=== PATIENT | male | born 1960 | race Two or more races ===

== ENCOUNTER 2017-05-12 13:46 | Emergency (ER) | payer OTHER ==
[2017-05-12 13:50] VITALS: BP 130/75; PULSE 90; TEMP 100.3; BMI 31.3
[2017-05-12] MEDS ORDERED: IBUPROFEN 600 MG TABLET (FP) PO ONE ×2 (15:50→15:51)
--- NOTE | 2017-05-12 15:55 | PDOC ---
History of Present Illness - General Chief Complaint: Cold Symptoms Stated Complaint: FEVER, COUGH Time Seen by Provider: 05/12/17 15:47 History Source: Patient Exam Limitations: No Limitations - History of Present Illness Initial Comments: 05/12/17 15:54 Came in with complaints of cough, fever, chills, runny nose, moist nonproductive cough and attempts greater than 101.5. States is been sick for approximately 2 days. Timing/Duration: reports: just prior to arrival, changing over time, getting worse Severity: reports: moderate Associated Symptoms: reports: chest pain/soreness, cough, dizziness, fever/ chills, nasal congestion Past History - Travel Traveled outside of the country in the last 30 days: No Close contact w/someone who was outside of country & ill: No - Past Medical History Allergies/Adverse Reactions: Allergies Allergy/AdvReac Type Severity Reaction Status Date / Time No Known Drug Allergies Allergy Verified 05/12/17 13:48 Home Medications: Ambulatory Orders Aspirin [ASA -] 81 mg PO DAILY 01/19/14 Atorvastatin Ca [Lipitor] 20 mg PO HS 12/26/15 Amlodipine Besylate [Norvasc -] 5 mg PO DAILY #30 tablet 12/28/15 Metoprolol Succinate [Toprol XL -] 25 mg PO DAILY #30 tab.sr.24h 12/28/15 Ibuprofen [Motrin -] 400 mg PO QID PRN #28 tablet 05/12/17 Oseltamivir Phosphate [Tamiflu -] 75 mg PO BID #10 capsule 05/12/17 Anemia: No Asthma: No Cancer: No Cardiac Disorders: No CVA: No COPD: No CHF: No Dementia: No Diabetes: No GI Disorders: No Disorders: No HTN: Yes Hypercholesterolemia: No Liver Disease: No Seizures: No Thyroid Disease: No - Surgical History Abdominal Surgery: No Appendectomy: No Cardiac Surgery: No Cholecystectomy: No Lung Surgery: No Neurologic Surgery: No Orthopedic Surgery: Yes (L KNEE ARTHROSCOPY) - Immunization History Immunization Up to Date: Yes - Suicide/Smoking/Psychosocial Hx Smoking Status: No Smoking History: Never smoked Have you smoked in the past 12 months: No Number of Cigarettes Smoked Daily: 0 Hx Alcohol Use: Yes Drug/Substance Use Hx: No Substance Use Type: Alcohol Hx Substance Use Treatment: Yes Review of Systems - Review of Systems Able to Perform ROS?: Yes Is the patient limited Faroese proficient: Yes Constitutional: Yes: Symptoms Reported, See HPI, Fever, Malaise HEENTM: Yes: Symptoms Reported, See HPI, Nose Congestion, Throat Pain Respiratory: Yes: Symptoms reported, See HPI, Cough ABD/GI: Yes: See HPI. No: Symptoms Reported Integumentary: Yes: Symptoms Reported, See HPI All Other Systems: Reviewed and Negative *Physical Exam - Vital Signs Last Vital Signs Temp Pulse Resp BP Pulse Ox 100.3 F H 90 18 130/75 99 05/12/17 13:47 05/12/17 13:47 05/12/17 13:47 05/12/17 13:47 05/12/17 13:47 - Physical Exam General Appearance: Yes: Nourished, Appropriately Dressed, Apparent Distress, Moderate Distress HEENT: positive: TMs Normal (congested), Tonsillar Erythema, Nasal Congestion, Rhinorrhea Neck: positive: Supple, Lymphadenopathy (R), Lymphadenopathy (L) Respiratory/Chest: positive: Lungs Clear (course but clear), Normal Breath Sounds Gastrointestinal/Abdominal: positive: Normal Bowel Sounds, Soft. negative: Tender Extremity: positive: Normal Capillary Refill, Normal Inspection Integumentary: positive: Dry, Warm, Pale Neurologic: positive: package wrapper II-XII NML intact, Fully Oriented, Alert, Normal Mood/ Affect, Normal Response, Motor Strength 5/5 Progress Note - Progress Note Progress Note: Influenzal type upper respiratory infection, we'll treat with Tamiflu *DC/Admit/Observation/Transfer Diagnosis at time of Disposition: Influenzal acute upper respiratory infection - Discharge Dispostion Disposition: HOME Condition at time of disposition: Stable Admit: No - Referrals Referrals: Darin Butler MD, [Primary Care Provider] - - Patient Instructions Printed Discharge Instructions: DI for Influenza -- Adult Additional Instructions: Rest, drink lots of fluids: Teas, water, soups, Pedialyte Saltwater gargles Steamy showers/seem to face break up mucus Old-fashioned treatments help! Avoid contact with others until fevers and cough resolved as this is very contagious Lots of handwashing and good hygiene Continue [id number] medications for symptomatic relief Tylenol or Motrin for fever and pain Take all of Tamiflu as directed: 1 tab every 12 hours for 5 days Followup with private physician in one to 2 days as needed or if worsening Return to emergency department for worsened symptoms, fevers, dehydration Influenza takes between 5 and 7 days for resolution To not participate in any activity, work, or school until fevers and cough are gone for at least one day - Post Discharge Activity Forms/Work/School Notes: Back to Work
== END 2017-05-12 15:58 | disposition home or self-care (01) ==
LOC: JERFT 13:46 → SUPCPDRO 13:46 → JERFT 15:58
DX: J11.1 Influenza due to unidentified influenza virus with other respiratory manifestations (principal)
CPT/HCPCS: 99281-25

== ENCOUNTER 2017-05-24 06:50 | Day surgery (SDC) | payer OTHER ==
[2017-05-22 08:38] VITALS: BMI 28.2
[2017-05-24] MEDS ORDERED: oxyCODONE HCL 5 MG TABLET PO PRN (09:03)
[2017-05-24] MEDS ORDERED: ONDANSETRON 4 MG/2 ML VIAL IVPUSH PRN (09:03)
[2017-05-24] MEDS ORDERED: LACTATED RINGERS SOLUTION 1,000 ML IV SCH (09:15)
[2017-05-24] MEDS ORDERED: EPINEPHrine 1:1,000 1 MG/1 ML - 30ML VIAL (INJECTION) SQ ONE (09:30)
[2017-05-24] MEDS ORDERED: BUPIVACAINE HCL/PF 0.25% (2.5MG/ML) 10 ML VIAL IJ ONE (09:30)
[2017-05-24] MEDS ORDERED: ONDANSETRON 4 MG/2 ML VIAL ONE (10:06)
--- NOTE | 2017-05-24 10:36 | OP ---
DATE OF OPERATION: 05/24/2017 PREOPERATIVE DIAGNOSIS: Right knee medial meniscal tear. POSTOPERATIVE DIAGNOSIS: Right knee medial meniscal tear. PROCEDURE: Right knee arthroscopy, partial medial meniscectomy. SURGEON: Malvin Pace MD ANESTHESIA: General. POSTOPERATIVE CONDITION: Stable. COMPLICATIONS: None. INDICATIONS: This is a pleasant gentleman suffering from right knee pain. MRI demonstrated medial meniscal tear. Treatment options including nonoperative versus operative management were discussed. Operative risks were reviewed in detail including bleeding, infection, neurovascular injury, need for further surgery, postoperative pain and stiffness, further progression of osteoarthritis. We discussed medical risks such as heart attack, stroke, DVT, PE, and . We discussed the use of perioperative antibiotic and DVT prophylaxis. I addressed all the patient's questions and concerns. He voiced understanding and elected to proceed. DESCRIPTION OF PROCEDURE: The patient was brought to the operating room where general anesthesia was administered. The right lower extremity was then prepped and draped in usual sterile fashion. A preoperative dose of antibiotics was given, and the usual timeout procedure was performed. At this point, the portal sites were marked out and then injected subcutaneously with 0.25% Marcaine. The 11 blade was now used to create the lateral portal. The arthroscope was passed into the knee. Examination of the patellofemoral joint demonstrated some high-grade partial fraying of the patellar surface and high-grade partial fissuring of the femoral surface. The arthroscope was now passed down to the notch. Here, the ACL and PCL were visualized to be intact. Passing the arthroscope into the medial compartment, a medial portal was established under spinal needle localization. There was high-grade, partial-thickness chondral loss over the medial femoral condyle, more so lateral aspect. Visualized was a complex tear of the posterior horn extending into the body of the medial meniscus. Utilizing a combination of meniscal biters and a shaver, this was debrided down to a stable base, retaining the upper flap as this appeared to be healthier tissue than the lower flap. The arthroscope was now passed into the lateral compartment. Here, some very mild superficial fraying was noted over the articular surfaces. The meniscus was slightly yellowed in appearance but without tear. The meniscus was probed and found to be stable and without tears. The excess fluid was now withdrawn from the joint. The portals were sutured using 2-0 nylon. Sterile dressings were placed. Patient was extubated and transferred to recovery room in stable condition. Ricardo [id number]
[2017-05-24] MEDS ORDERED: oxyCODONE HCL 5 MG TABLET ONE (11:19)
[2017-05-24 11:35] VITALS: TEMP 98.4
[2017-05-24 12:41] VITALS: BP 120/80; PULSE 66
== END 2017-05-24 12:40 | disposition home or self-care (01) ==
LOC: FASU 06:50
PROVIDERS: ATTEND Orthopaedic Surgery Sports Medicine
PROC: 0SBC4ZZ Excision of Right Knee Joint, Percutaneous Endoscopic Approach (ICD-10-PCS; principal; 2017-05-24 09:10)
DX: S83.241A Other tear of medial meniscus, current injury, right knee, initial encounter (principal); X58.XXXA Exposure to other specified factors, initial encounter; Y93.89 Activity, other specified; Y92.89 Other specified places as the place of occurrence of the external cause
CPT/HCPCS: 94760

== ENCOUNTER 2018-09-03 19:47 | Emergency (ER) | payer OTHER | END 2018-09-04 00:18 | disposition home or self-care (01) | LOC: JER 09-04 00:18 | DX: M10.9 Gout, unspecified (principal); I10 Essential (primary) hypertension; E78.00 Pure hypercholesterolemia, unspecified ==

== ENCOUNTER 2019-03-11 16:41 | Emergency (ER) | payer SELFPAY ==
[2019-03-11 16:49] VITALS: BP 161/93; PULSE 67; TEMP 98.4; BMI 31.8
--- NOTE | 2019-03-11 16:49 | PDOC ---
Rapid Medical Evaluation Chief Complaint: Hemorrhoids Time Seen by Provider: 03/11/19 16:43 Medical Evaluation: Allergies Allergy/AdvReac Type Severity Reaction Status Date / Time No Known Drug Allergies Allergy Verified 09/03/18 19:50 03/11/19 16:45 I have performed a brief in-person evaluation of this patient. The patient presents with a chief complaint of: h/o hemorrhoids presenting with complains of rectal bleed from hemorrhoids . Saw PCP today who referred him to surgery for f/u but could not get appt until next week and was advised to come to ED if rectal bleed. report had small amount of blood in stool today Pertinent physical exam findings: A&O x 3 in NAD I have ordered the following: nothing The patient will proceed to the ED for further evaluation. Discharge Disposition - Diagnosis Hemorrhoids Qualifiers: Hemorrhoid type: unspecified Qualified Code(s): K64.9 - Unspecified hemorrhoids - Discharge Dispostion Condition at time of disposition: Stable - Referrals - Patient Instructions - Post Discharge Activity
--- NOTE | 2019-03-11 18:10 | PDOC ---
History of Present Illness - General Chief Complaint: Hemorrhoids Stated Complaint: GI BLEEDING Time Seen by Provider: 03/11/19 16:43 - History of Present Illness Initial Comments: 03/11/19 18:09 58-year-old male without comorbidities presents for evaluation of bright red blood per rectum today. He states he has a large hemorrhoid he cannot see his GI doctor until Sunday and today he started rectal bleeding Past History - Past Medical History Allergies/Adverse Reactions: Allergies Allergy/AdvReac Type Severity Reaction Status Date / Time No Known Drug Allergies Allergy Verified 03/11/19 16:49 Home Medications: Ambulatory Orders Aspirin [ASA -] 81 mg PO DAILY 01/19/14 Atorvastatin Ca [Lipitor] 20 mg PO HS 12/26/15 Amlodipine Besylate [Norvasc -] 5 mg PO DAILY #30 tablet 12/28/15 Metoprolol Succinate [Toprol XL -] 25 mg PO DAILY #30 tab.sr.24h 12/28/15 Ibuprofen [Motrin -] 400 mg PO QID PRN #28 tablet 05/12/17 Indomethacin [Indocin -] 50 mg PO TID 3 Days #9 capsule 09/04/18 Anemia: No Asthma: No Cancer: No Cardiac Disorders: No CVA: No COPD: No CHF: No Dementia: No Diabetes: No GI Disorders: No Disorders: No HTN: Yes Hypercholesterolemia: Yes Liver Disease: No Seizures: No Thyroid Disease: No - Surgical History Abdominal Surgery: No Appendectomy: No Cardiac Surgery: No Cholecystectomy: No Lung Surgery: No Neurologic Surgery: No Orthopedic Surgery: Yes (L KNEE ARTHROSCOPY) - Immunization History Immunization Up to Date: Yes - Psycho Social/Smoking Cessation Hx Smoking Status: No Smoking History: Never smoked Have you smoked in the past 12 months: No Number of Cigarettes Smoked Daily: 0 Information on smoking cessation initiated: No Hx Alcohol Use: No Drug/Substance Use Hx: No Substance Use Type: Alcohol Hx Substance Use Treatment: Yes Review of Systems - Review of Systems ABD/GI: Yes: Rectal Bleeding *Physical Exam - Vital Signs Last Vital Signs Temp Pulse Resp BP Pulse Ox 98.4 F 67 17 161/93 100 03/11/19 16:43 03/11/19 16:43 03/11/19 16:43 03/11/19 16:43 03/11/19 16:43 - Physical Exam 03/11/19 18:10 Is a large thrombosed hemorrhoid at the 5 o'clock position and a smaller thrombosed hemorrhoid at the 9 o'clock position. Medical Decision Making - Medical Decision Making 03/11/19 18:10 I will transfer this patient to the main emergency room for further work-up Discharge - Discharge Information Problems reviewed: Yes Clinical Impression/Diagnosis: GI bleed Hemorrhoids Qualifiers: Hemorrhoid type: unspecified Qualified Code(s): K64.9 - Unspecified hemorrhoids Condition: Stable - Follow up/Referral Referrals: Darin Butler MD, MD [Primary Care Provider] - - Patient Discharge Instructions - Post Discharge Activity
[2019-03-11 18:49] LABS: EOS % 1.9 % (0-4.5); HEMATOCRIT 41.8 % (35.4-49); HEMOGLOBIN 14.2 GM/dL (11.7-16.9); LYMPH % 45.2 % (8-40); MCH 32.7 pg (25.7-33.7); MCHC 34.1 g/dl (32.0-35.9); MEAN CELL VOLUME 96.1 fl (80-96); MEAN PLT VOLUME 8.3 fl (7.5-11.1); MONO % 13.2 % (3.8-10.2); NEUT % 38.7 % (42.8-82.8); PLATELET COUNT 232 K/MM3 (134-434); RBC 4.35 M/mm3 (4.00-5.60); RDW 13.5 % (11.9-15.9); WHITE BLOOD COUNT 4.9 K/mm3 (4.0-10.0)
[2019-03-11 19:10] LABS: ALBUMIN 4.3 g/dl (3.4-5.0); BILIRUBIN,TOTAL 0.4 mg/dL (0.2-1); BLOOD UREA NITROGEN 13.8 mg/dL (7-18); CALCIUM 9.7 mg/dL (8.5-10.1); CREATININE 0.9 mg/dL (0.55-1.3); POTASSIUM 3.8 mmol/L (3.5-5.1); TOT PROT 8.3 g/dl (6.4-8.2)
--- NOTE | 2019-03-11 19:25 | PDOC ---
*Physical Exam - Vital Signs Last Vital Signs Temp Pulse Resp BP Pulse Ox 98.4 F 67 17 161/93 100 03/11/19 16:43 03/11/19 16:43 03/11/19 16:43 03/11/19 16:43 03/11/19 16:43 - Physical Exam General Appearance: Yes: Appropriately Dressed Rectal Exam: positive: hemorrhoids (thrombosed. minimal pain, ), other (no active bleeding noted) Extremity: positive: Normal Capillary Refill Integumentary: positive: Normal Color, Dry, Warm Neurologic: positive: Fully Oriented, Alert, Normal Mood/Affect ED Treatment Course - LABORATORY CBC & Chemistry Diagram: 03/11/19 18:20 03/11/19 18:20 - ADDITIONAL ORDERS Additional order review: Laboratory Results 03/11/19 18:20 Sodium 141 Potassium 3.8 Chloride 102 Carbon Dioxide 30 Anion Gap 9 BUN 13.8 Creatinine 0.9 Est GFR (CKD-EPI)AfAm 110.27 Est GFR (CKD-EPI)NonAf 95.14 Random Glucose 104 Calcium 9.7 Total Bilirubin 0.4 AST 117 H ALT 106 H Alkaline Phosphatase 129 H Total Protein 8.3 H Albumin 4.3 03/11/19 18:20 RBC 4.35 MCV 96.1 H MCHC 34.1 RDW 13.5 MPV 8.3 Neutrophils % 38.7 L D Lymphocytes % 45.2 H D Monocytes % 13.2 H Eosinophils % 1.9 Basophils % 1.0 Discharge - Discharge Information Problems reviewed: Yes Clinical Impression/Diagnosis: Rectal bleeding Hemorrhoids Qualifiers: Hemorrhoid type: unspecified Qualified Code(s): K64.9 - Unspecified hemorrhoids Condition: Stable Disposition: HOME - Additional Discharge Information Prescriptions: Docusate Sodium [Colace] 100 mg PO BID #30 capsule Hydrocortisone Acetate [Anusol Hc Suppository -] 25 mg RC BID PRN #28 supp.rect PRN Reason: Pain - Follow up/Referral Referrals: Darin Butler MD, MD [Primary Care Provider] - Hunter Landaverde MD [Staff Physician] - Call tomorrow Aldo Alba [Staff Physician] - Call tomorrow - Patient Discharge Instructions Patient Printed Discharge Instructions: DI for Hemorrhoids Additional Instructions: drink plenty of fluids use anusol as prescribed use colace as prescribed. follow up with a rectal surgeon as soon as possible return to the ER for any worsening symptoms - Post Discharge Activity
--- NOTE | 2019-03-11 19:33 | PDOC ---
*Physical Exam - Vital Signs Last Vital Signs Temp Pulse Resp BP Pulse Ox 98.4 F 67 17 161/93 100 03/11/19 16:43 03/11/19 16:43 03/11/19 16:43 03/11/19 16:43 03/11/19 16:43 ED Treatment Course - LABORATORY CBC & Chemistry Diagram: 03/11/19 18:20 03/11/19 18:20 - ADDITIONAL ORDERS Additional order review: Laboratory Results 03/11/19 18:20 Sodium 141 Potassium 3.8 Chloride 102 Carbon Dioxide 30 Anion Gap 9 BUN 13.8 Creatinine 0.9 Est GFR (CKD-EPI)AfAm 110.27 Est GFR (CKD-EPI)NonAf 95.14 Random Glucose 104 Calcium 9.7 Total Bilirubin 0.4 AST 117 H ALT 106 H Alkaline Phosphatase 129 H Total Protein 8.3 H Albumin 4.3 03/11/19 18:20 RBC 4.35 MCV 96.1 H MCHC 34.1 RDW 13.5 MPV 8.3 Neutrophils % 38.7 L D Lymphocytes % 45.2 H D Monocytes % 13.2 H Eosinophils % 1.9 Basophils % 1.0 Medical Decision Making - Medical Decision Making 03/11/19 19:32 `Patient seen by the advanced practice provider under my direct supervision. Ancillary testing reviewed as necessary. I agree with plan as outlined by the advanced practice provider. Discharge - Discharge Information Problems reviewed: Yes Clinical Impression/Diagnosis: Rectal bleeding Hemorrhoids Qualifiers: Hemorrhoid type: unspecified Qualified Code(s): K64.9 - Unspecified hemorrhoids Condition: Stable Disposition: HOME - Additional Discharge Information Prescriptions: Docusate Sodium [Colace] 100 mg PO BID #30 capsule Hydrocortisone Acetate [Anusol Hc Suppository -] 25 mg RC BID PRN #28 supp.rect PRN Reason: Pain - Follow up/Referral Referrals: Hunter Landaverde MD [Staff Physician] - Call tomorrow Darin Butler MD, MD [Primary Care Provider] - Aldo Alba [Staff Physician] - Call tomorrow - Patient Discharge Instructions Patient Printed Discharge Instructions: DI for Hemorrhoids Additional Instructions: drink plenty of fluids use anusol as prescribed use colace as prescribed. follow up with a rectal surgeon as soon as possible return to the ER for any worsening symptoms - Post Discharge Activity
[2019-03-11] MEDS ORDERED: HYDROCORTISONE 2.5% TOPICAL CREAM 30 GM TUBE PR ONE (19:44)
[2019-03-11 19:46] LABS: ERYTHROCYTE SEDIMENTATION RATE 7 mm/hr (0-20)
== END 2019-03-11 20:24 | disposition home or self-care (01) ==
LOC: JERFT 16:41 → JER 16:41
DX: K64.5 Perianal venous thrombosis (principal); I10 Essential (primary) hypertension; E78.5 Hyperlipidemia, unspecified
CPT/HCPCS: 36415; 80053; 82272; 85025; 85651; 86850; 86900; 86901; 99283-25

== ENCOUNTER 2020-07-12 16:20 | Emergency (ER) | payer OTHER ==
[2020-07-12 16:44] VITALS: TEMP 98.2; BMI 29.8
[2020-07-12] MEDS ORDERED: SODIUM CHLORIDE 1,000 ML IV STA (18:16)
[2020-07-12 19:24] LABS: BASO % 0.6 % (0-2.0); EOS % 0.6 % (0-4.5); HEMOGLOBIN 15.1 GM/dL (11.7-16.9); LYMPH % 27.7 % (8-40); MCH 33.4 pg (25.7-33.7); MCHC 34.4 g/dl (32.0-35.9); MEAN CELL VOLUME 97.2 fl (80-96); MEAN PLT VOLUME 8.9 fl (7.5-11.1); NEUT % 58.1 % (42.8-82.8); PLATELET COUNT 257 K/MM3 (134-434); RBC 4.53 M/mm3 (4.00-5.60); RDW 14.1 % (11.9-15.9); WHITE BLOOD COUNT 7.5 K/mm3 (4.0-10.0)
[2020-07-12 19:44] LABS: CHLORIDE 100 mmol/L (98-107); SODIUM 136 mmol/L (136-145)
[2020-07-12 19:46] LABS: CALCIUM 9.6 mg/dL (8.5-10.1)
[2020-07-12 19:47] LABS: ALBUMIN 4.8 g/dl (3.4-5.0); ANION GAP 10 MMOL/L (8-16); CO2 26 mmol/L (21-32); GLUCOSE,RANDOM 122 mg/dL (74-106)
[2020-07-12 19:49] LABS: CREATININE 0.9 mg/dL (0.55-1.3)
[2020-07-12 19:50] LABS: SGOT/AST 111 U/L (15-37); SGPT/ALT 91 U/L (13-61)
[2020-07-12 19:51] LABS: BILIRUBIN,TOTAL 0.7 mg/dL (0.2-1)
[2020-07-12 19:52] LABS: ALK PHOS 149 U/L (45-117)
[2020-07-13 00:06] VITALS: BP 142/76; PULSE 95
== END 2020-07-13 00:06 | disposition home or self-care (01) ==
LOC: JER 16:20
PROC: 3E0337Z Introduction of Electrolytic and Water Balance Substance into Peripheral Vein, Percutaneous Approach (ICD-10-PCS; principal; 2020-07-12)
DX: M79.652 Pain in left thigh (principal); R42 Dizziness and giddiness
CPT/HCPCS: 36415; 71046-TC-FY; 80053; 82550; 82553; 84484; 85025; 93005; 93010; 93971-TC; 99285-25

== ENCOUNTER 2021-05-30 11:43 | Emergency (ER) | payer OTHER ==
[2021-05-30 11:59] VITALS: TEMP 97.9; BMI 29.8
[2021-05-30 13:04] LABS: EOS % 1.5 % (0-4.5); HEMATOCRIT 45.2 % (35.4-49); HEMOGLOBIN 15.7 GM/dL (11.7-16.9); MCH 32.8 pg (25.7-33.7); MCHC 34.6 g/dl (32.0-35.9); MEAN CELL VOLUME 94.7 fl (80-96); MEAN PLT VOLUME 8.4 fl (7.5-11.1); MONO % 15.1 % (3.8-10.2); NEUT % 63.4 % (42.8-82.8); PLATELET COUNT 179 10^3/uL (134-434); RBC 4.77 M/mm3 (4.00-5.60); RDW 14.5 % (11.9-15.9); WHITE BLOOD COUNT 4.6 K/mm3 (4.0-10.0)
[2021-05-30 13:26] LABS: CALCIUM 9.7 mg/dL (8.5-10.1)
[2021-05-30 13:27] LABS: ALBUMIN 4.2 g/dl (3.4-5.0); BLOOD UREA NITROGEN 10.6 mg/dL (7-18)
[2021-05-30 13:31] LABS: BILIRUBIN,TOTAL 0.9 mg/dL (0.2-1)
[2021-05-30 13:32] LABS: TOT PROT 8.4 g/dl (6.4-8.2)
[2021-05-30] MEDS ORDERED: METOCLOPRAMIDE HCL INJECTION 10 MG/2 ML VIAL IVPUSH ONE (13:41)
[2021-05-30] MEDS ORDERED: SODIUM CHLORIDE 1,000 ML IV ONE (13:41)
[2021-05-30] MEDS ORDERED: METOCLOPRAMIDE HCL INJECTION 10 MG/2 ML VIAL ONE (13:50)
[2021-05-30 15:00] VITALS: BP 127/78; PULSE 68
[2021-05-30] MEDS ORDERED: ASPIRIN 81 MG CHEWABLE TABLETS PO ONE (15:06)
[2021-05-30] MEDS ORDERED: ACETAMINOPHEN 325 MG TABLET (FP) PO ONE (15:06)
[2021-05-30] MEDS ORDERED: ASPIRIN 81 MG CHEWABLE TABLETS ONE (15:12)
[2021-05-30] MEDS ORDERED: ACETAMINOPHEN 325 MG TABLET (FP) ONE (15:12)
== END 2021-05-30 17:05 | disposition home or self-care (01) ==
LOC: JER 11:43
PROC: 3E033GC Introduction of Other Therapeutic Substance into Peripheral Vein, Percutaneous Approach (ICD-10-PCS; principal; 2021-05-30)
PROC: 3E0337Z Introduction of Electrolytic and Water Balance Substance into Peripheral Vein, Percutaneous Approach (ICD-10-PCS; 2021-05-30)
DX: R07.9 Chest pain, unspecified (principal)
CPT/HCPCS: 36415; 71045-TC-FY; 80053; 82550; 82553; 84484; 85025; 93005; 93010; 99285-25

== ENCOUNTER 2022-03-29 23:37 | Emergency (ER) | payer OTHER ==
[2022-03-29 23:52] VITALS: BP 141/90; PULSE 71; RESP 19; TEMP 98; BMI 32.3
== END 2022-03-30 01:23 | disposition home or self-care (01) ==
LOC: JER 23:37
DX: U07.1 COVID-19 (principal)
CPT/HCPCS: 0241U-QW; 99283-25